=== PATIENT | male | born 2000 | race Caucasian/White ===

== ENCOUNTER 2021-12-24 22:25 | Emergency (ER) | payer BC, SELFPAY ==
[2021-12-24 22:46] VITALS: BP 116/75; PULSE 74; RESP 18; TEMP 36.7; O2SAT 99; BMI 19.1
--- NOTE | 2021-12-25 02:44 | ED.GENADULT ---
HPI - General Adult General Time Seen by Provider: 02:45 Date Seen: 12/25/21 Chief complaint: Urogenital Problems, Male Stated complaint: possible hernia Time Seen by Provider: 12/25/21 02:36 Source: patient Mode of arrival: ambulatory Limitations: no limitations History of Present Illness HPI narrative: 21-year-old male who comes in today with right inguinal swelling. This started about 4 days ago. He is concerned about hernia. It is tender. He denies testicular or scrotal pain or swelling. He denies urinary symptoms or urethral discharge. He denies nausea, vomiting, and is having normal bowel movements. Denies abdominal pain. Related Data Allergies Allergy/AdvReac Type Severity Reaction Status Date / Time No Known Drug Allergies Allergy Verified 12/24/21 22:50 Exam Narrative: Exam Narrative: General: well nourished , NAD Head: Atraumatic and normocephalic ENT: External ears and external nose are normal Eyes: Conjunctiva clear, pupils are equal reactive, external ocular motions are intact Neck: Full spontaneous range of motion of the neck Lungs: No respiratory distress Abd: Soft, nontender, nondistended Musculoskeletal: No tenderness or deformity Neurologic: No gross focal neurologic deficits Skin: Right suprapubic region 4 mm area of central swelling with about 6 cm of surrounding erythema and induration, no pustule and no definite abscess Psych: Mood and affect are appropriate Const: Vital Signs, click to edit/add: Vital Signs - 24 hr 12/24/21 22:46 Temperature 98.0 F Pulse Rate [Left P ulse Oximeter] 74 Respiratory Rate 18 Blood Pressure [Ri ght Upper Arm] 116/75 Pulse Oximetry 99 Oxygen Delivery Me thod Room Air Course Course Hospital Course: Patient seen and examined, prior records reviewed. Patient has a proximally 2 cm area of induration, erythema, and tenderness of the right suprapubic region consistent with folliculitis and cellulitis no drainable abscess or fluid collection at this time. Denies testicular pain or swelling, no hernia defect. Patient was started warm packs, and follow up Vital Signs Vital signs: Initial Vital Signs Temperature 98.0 F 12/24/21 22:46 Temperature Source Temporal Artery Scan 12/24/21 22:46 Pulse Rate 74 10 22:46 Pulse Rhythm 12/24/21 22:46 Respiratory Rate 18 12/24/21 22:46 Blood Pressure 116/75 12/24/21 22:46 Blood Pressure Mean 88 12/24/21 22:46 Blood Pressure Position Sitting 12/24/21 22:46 Pulse Oximetry 99 12/24/21 22:46 Oxygen Delivery Method 12/24/21 22:46 Vital Signs Temperature 98.0 F 12/24/21 22:46 Pulse Rate 74 12/24/21 22:46 Respiratory Rate 18 12/24/21 22:46 Blood Pressure 116/75 12/24/21 22:46 Pulse Oximetry 99 12/24/21 22:46 Oxygen Delivery Method 12/24/21 22:46 Temperature 98.0 F 12/24/21 22:46 Pulse Rate 74 12/24/21 22:46 Respiratory Rate 18 12/24/21 22:46 Blood Pressure 116/75 12/24/21 22:46 Pulse Oximetry 99 12/24/21 22:46 Oxygen Delivery Method 12/24/21 22:46 Discharge Plan Discharge Clinical Impression: Folliculitis Patient Disposition: Home, Self-Care Condition: Stable Instructions: Folliculitis (ED) Additional Instructions: Warm pack 15 minutes at a time every 2 or 3 hours while awake for the next 2 days. Do not squeeze or try to ?pop this if he develops a pimple. Take both antibiotics as prescribed Activity Level: No Restrictions Discharge Diet: Regular Stand Alone Forms: MyHealth Info Instructions
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
--- OUTSIDE RECORDS SUMMARY | 2021-12-25 03:11 | XMS_ITS | Encounter Summary ---
:2000 [facility] Address [address], [place] [address] Care Team Providers Name Role Phone Md ARLENE Addison Primary Care Provider Reason for Visit Procedure/Equipment (Routine) - Incomplete Specialty Diagnoses / Procedures Referred By Contact Refer red To Contact Diagnoses Metatarsal stress fracture, right, initial encounter Delbert Ac MD Procedures XR Foot Rt 3+ Views [address] [facility] [address] [place] [address] Referral ID Status Reason Start Date Expiration Date Visits V isits Requested Authorized [id number] Incomplete 02/23/2016 05/24/2017 1 1 Encounter Details Date Type Department Care Team Description 02/23/2016 Imaging [facility] Delbert Ac MD Right foot pain [address] [facility] [address] [facility] [address] [place] [address] [place] [address] [phone] (Wo rk) Social History Tobacco Use Types Packs/Day Years Used Date Smoking Tobacco: Never Sex Assigned at Date Recorded Not on file documented as of this encounter Plan of Treatment Not on filedocumented as of this encounter Procedures Procedure Name Priority Date/Time Associated Diagnosis Comme nts XR FOOT RT 3+ VIEWS Routine 02/23/2016 10:56 AM Right foot bill n Results for this DIRECTOR OF INSTRUCTION procedure are i n the results section. documented in this encounter Results XR Foot Rt 3+ Views (02/23/2016 10:56 AM DIRECTOR OF INSTRUCTION) Anatomical Region Laterality Modality Lower Extremity, Foot Digital Radiograph y Specimen (Source) Anatomical Location Collection Method / Collectio n Time Received Time / Laterality Volume Narrative 02/23/2016 2:08 PM DIRECTOR OF INSTRUCTION No acute fractures or dislocation. There is evidence of a healing stress fracture over the shaft of the 2nd metat arsal. Delbert Ac MD RAD GD documented in this encounter Visit Diagnoses Diagnosis Right foot pain Pain in limb documented in this encounter Care Teams Campaign Specialist Relationship Specialty Start Date End Date Md Addison MD PCP - General 06/17/10 [place] [address] documented as of this encounter
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
--- OUTSIDE RECORDS SUMMARY | 2021-12-25 03:11 | XMS_ITS | Encounter Summary ---
:2000 [facility] Address [address] [address] Care Team Providers Name Role Phone Md ARLENE Addison Primary Care Provider Encounter Details Date Type Department Care Team Description 04/02/2003 PN Conversion Only [facility] 3850 Fabiola Spicer MD Urgent Care [address] [facility] [address] [facility] [place] [address] [phone] Social History Tobacco Use Types Packs/Day Years Used Date Smoking Tobacco: Never Assessed Sex Assigned at Date Recorded Not on file documented as of this encounter Progress Notes Vale Spicer MD - 04/02/2003 12:01 AM CST Progress Notes signed by Vale Spicer MD at 07/13/03 1333 Author: Vale Spicer MD Service: (none) Author Type: Physician Filed: 07/04/10 1819 Note Time: 04/02/03 0001 Status: Signed Creative Writing English Professor: Vale Spicer MD (Physician) NAME: MARLON SPENCER MR: [id number] ACCT: [id number] VISIT: [id number] DICTATING CLINICIAN: VALE SPICER MD JOB: [id number] CLINIC PROGRESS NOTE DATE OF VISIT: 04/02/2003 SUBJECTIVE: : 2000. See today's URI form. OBJECTIVE: ASSESSMENT: Strep throat. PLAN: Treatment: Pen-Vee K 250 mg b.i.d. for 10 days. TT: CT: [id number] C: 04/03/03 07:55 DOCUMENT: [id number] documented in this encounter Plan of Treatment Not on filedocumented as of this encounter Visit Diagnoses Not on filedocumented in this encounter Care Teams Legal Associate Relationship Specialty Start Date End Date Md Azael, PCP - General 06/17/10 [place] [address] documented as of this encounter
--- OUTSIDE RECORDS SUMMARY | 2021-12-25 03:11 | XMS_ITS | Encounter Summary ---
:2000 Author Organization [facility] Address [address] [address] Care Team Providers Name Role Phone Md ARLENE Addison Primary Care Provider Encounter Details Date Type Department Care Team Description 11/26/2009 PN Conversion Only [employer] EQUIPMENT TENDER [address] [place] [address] Social History Tobacco Use Types Packs/Day Years Used Date Smoking Tobacco: Never Assessed Sex Assigned at Date Recorded Not on file documented as of this encounter Plan of Treatment Not on filedocumented as of this encounter Visit Diagnoses Not on filedocumented in this encounter Care Teams Staff Development Coordinator Rn Relationship Specialty Start Date End Date Md Addison MD PCP - General 06/17/10 [place] [address] documented as of this encounter
--- OUTSIDE RECORDS SUMMARY | 2021-12-25 03:11 | XMS_ITS | Encounter Summary ---
:2000 [facility] Address [address] [address] Care Team Providers Name Role Phone Md ARLENE Addison Primary Care Provider Encounter Details Date Type Department Care Team Description 04/07/2005 Office Visit [address] Soheila Mccoy [address] [place] [address] Social History Tobacco Use Types Packs/Day Years Used Date Smoking Tobacco: Never Assessed Sex Assigned at Date Recorded Not on file documented as of this encounter Last Filed Vital Signs Vital Sign Reading Time Taken Comments Blood Pressure - - Pulse 120 04/07/2005 7:03 PM CLOTH SHADER Temperature 37.3 ??C (99.1 ??F) 04/07/2005 7:03 PM CLOTH SHADER C: 37 .3 C Respiratory Rate 20 04/07/2005 7:03 PM CLOTH SHADER Oxygen Saturation - - Inhaled Oxygen Concentration - - Weight - - Height - - Body Mass Index - - documented in this encounter Progress Notes Soheila Mccoy - 04/07/2005 12:01 AM CST Progress Notes signed by Soheila Mccoy MD at 04/11/05 1834 Author: Soheila Mccoy MD Service: (none) Author Type: (none) Filed: 07/05/10 0944 Note Time: 04/07/05 0001 Status: Signed Banking And Finance Instructor: Soheila Mccoy MD (Physician) NAME: MARLON SPENCER MR: [id number] ACCT: [id number] VISIT: [id number] DICTATING CLINICIAN: SOHEILA MCCOY MD JOB: [id number] CLINIC PROGRESS NOTE DATE OF VISIT: 04/07/2005 SUBJECTIVE: Chief Complaint: Sore throat. HPI: This 4-year-old male has had approximately six hours of mild sore throat. He notes it does hurt to swallow. He notes mild myalgias. There is no fever. No chills. Patient is eating normally. He did not have any sore throat before he went to school today. He denies cough, rhinorrhea. He has no known strep exposure. PAST MEDICAL HISTORY: Otherwise, negative. MEDICATIONS: None. ADR/ALLERGIES: NONE. REVIEW OF SYSTEMS: ENT positive for sore throat. Constitutional positive for myalgias. Respiratory, skin, neurologic, psychiatric, GI, are negative. OBJECTIVE: VS: T: 99.2. P: 120. R: 20. CONSTITUTIONAL APPEARANCE: The patient is in no apparent acute distress. SKIN: Warm and dry. NEUROLOGICAL: PERRL. EOMs within normal limits. PSYCHIATRIC: Patient is active, alert, conversing appropriately. MUSCULOSKELETAL: Gait within normal limits. EYES: Eyelids, conjunctivae, pupils, irises are normal. ENT: Exterior ears, nose, TMs, canals are normal. Oropharynx shows slight redness, no exudate. NECK: Supple. Respiratory pattern normal. LUNGS: Clear. CLINICAL TREATMENT: Rapid strep screen is negative. Patient instructions provided. ASSESSMENT: Acute viral pharyngitis. PLAN: The patient is to be at rest, drink lots of liquids. He is to take Motrin and/or Tylenol for fever discomfort. He is to be reexamined in three to five days. RGD:[id number] C: 04/08/05 17:47 DOCUMENT: [id number] H SHADER documented in this encounter Plan of Treatment Not on filedocumented as of this encounter Visit Diagnoses Not on filedocumented in this encounter Care Teams Millwright Instructor Relationship Specialty Start Date End Date Md Addison MD PCP - General 06/17/10 [place] [address] documented as of this encounter
--- OUTSIDE RECORDS SUMMARY | 2021-12-25 03:11 | XMS_ITS | Encounter Summary ---
:2000 Author Organization [facility] Address [address] [address] Care Team Providers Name Role Phone Md ARLENE Addison Primary Care Provider Encounter Details Date Type Department Care Team Description 12/26/2009 Office Visit [facility] Jeff Lipscomb MD [address] [place] [address] [place] [address] [phone] (Wo rk) Social History Tobacco Use Types Packs/Day Years Used Date Smoking Tobacco: Never Assessed Sex Assigned at Date Recorded Not on file documented as of this encounter Progress Notes Berna Salgado OA - 12/26/2009 12:01 AM CDT Progress Notes signed by Berna Salgado at 12/26/09 1147 Author: Berna Salgado Service: (none) Author Type: ORTHOPAEDIC PHARMACY TECHNICIAN INFUSION Filed: 12/26/09 0000 Note Time: 12/26/09 0001 Status: Signed Psychiatric Nursing Assistant: Berna Salgado (ORTHOPAEDIC PHARMACY TECHNICIAN INFUSION) Patient presented to the castroom with his Mother. Per Dr. Jj's dictation long arm cast is removed from right arm. Skin is dry and intact, no reddness noted. New Short arm cast in neutral position applied to right arm, Patient to follow up as scheduled, sooner with any concerns. Radha Cui documented in this encounter Plan of Treatment Not on filedocumented as of this encounter Visit Diagnoses Not on filedocumented in this encounter Care Teams Land Acquisition Manager Relationship Specialty Start Date End Date Md Addison MD PCP - General 06/17/10 [place] [address] documented as of this encounter
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
--- OUTSIDE RECORDS SUMMARY | 2021-12-25 03:11 | XMS_ITS | Encounter Summary ---
:2000 Author Organization [facility] Address [address], [place] [address] Care Team Providers Name Role Phone Md ARLENE Addison Primary Care Provider Encounter Details Date Type Department Care Team Description 04/02/2003 PN Conversion Only RABBLE FURNACE TENDER [address] [facility] Vale Grant MD [facility] [facility] [address] [place] [address] [place] [address] Social History Tobacco Use Types Packs/Day Years Used Date Smoking Tobacco: Never Assessed Sex Assigned at Date Recorded Not on file documented as of this encounter Plan of Treatment Not on filedocumented as of this encounter Procedures Procedure Name Priority Date/Time Associated Diagnosis Comme nts STREP GROUP A Routine 04/02/2003 10:06 AM Results for this ANTIGEN TEST BLUEPRINT ENGINEER procedure are i n the results section. documented in this encounter Results Strep Group A Antigen Test (04/02/2003 10:06 AM BLUEPRINT ENGINEER) Analysis Performed At [facility] Time Signature Strep Group A Positive Negative HP CONVERSION Antigen Test Specimen (Source) Anatomical Collection Method Collection Time Re ceived Time Location / / Volume Laterality 04/02/2003 10:06 AM BLUEPRINT ENGINEER Vale Grant MD LAB_1 Performing Organization Address City/State/ZIP Code Phon e Number HP CONVERSION documented in this encounter Visit Diagnoses Not on filedocumented in this encounter Care Teams Cull Grader Relationship Specialty Start Date End Date Md Addison MD PCP - General 06/17/10 [place] [address] documented as of this encounter
--- OUTSIDE RECORDS SUMMARY | 2021-12-25 03:11 | XMS_ITS | Encounter Summary ---
:2000 Author Organization [facility] Address [address], [place] [address] Care Team Providers Name Role Phone Md ARLENE Addison Primary Care Provider Encounter Details Date Type Department Care Team Description 07/04/2010 Office Visit [facility] Hand Therapy Roseann Solomon, OTR/L [address] [place], [place] [address] [address] [place] [address] [phone] (Wo rk) Social History Tobacco Use Types Packs/Day Years Used Date Smoking Tobacco: Never Assessed Sex Assigned at Date Recorded Not on file documented as of this encounter Progress Notes Roseann Solomon, OTR/L - 07/04/2010 12:[address] [facility] Hand Therapy Evaluation Referring Provider: Corie Jj MD. Diagnosis: Right Distal Radius Fracture. Orders: Eval and treat. Exercise. Date of onset: 05/17/2010 Cause: fell Hand Dominance: Left Past Medical History: See Electronic Medical Record for past medical history, medications, and drug allergies. Occupation: 5th grader Leisure / Sport Activities: leggos, biking, piano Functional Limitations: Patient will need to wear a splint that will limit the functional use of their hand during the healing phase of recovery. SUBJECTIVE: Patient to wear splint x4 weeks for activities. OBJECTIVE: Edema: None. Pain: 0/10 at rest; 1/10 with palpation to distal radius ROM: Wrist AROM Wrist extension/flexion: 52/37 Ulnar/Radial deviation: 17/20 Supination/Pronation: 55/57 Strength: Strength measurements were deferred at this time. Sensation: Per patient report sensation is intact. TODAY'S TREATMENT INTERVENTION: Patient was instructed in, performed, and provided with written handouts for wrist AROM and AAROM. Patient instructed in finger ROM as well. ASSESSMENT: Functional limitations are due to: Decreased range of motion. Decreased strength. Fracture healing. Rehabilitation prognosis is excellent to achieve stated goals. Mood, orientation, and behavior were appropriate. Patient was alert and oriented. No apparent barriers to learning. Discharge is planned when functional outcomes are achieved, or adequate progress is made such that the patient is able to self-manage with the home program. Functional Outcomes: Patient will resume use of affected extremity in 6-8 weeks per referring provider. PLAN: Short term goals achieved. Patient to gradually resume all actives with right hand. If motion and use are not improving in approximately 2 weeks instructed patient's mother to call for further treatment. Occupational Therapy Evaluation (CPT 95857) Total evaluation/treatment time: 20 minutes Therapist Signature: Roseann Solomon MA, OTR/L #[id number] *SH~TRIA~HANDACUTE ~ documented in this encounter Plan of Treatment Not on filedocumented as of this encounter Visit Diagnoses Not on filedocumented in this encounter Care Teams Production Posting Clerk Relationship Specialty Start Date End Date Md Addison MD PCP - General 06/17/10 [place] [address] documented as of this encounter
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
--- OUTSIDE RECORDS SUMMARY | 2021-12-25 03:11 | XMS_ITS | Encounter Summary ---
:2000 Author Organization [facility] Address [address] [place] [address] Care Team Providers Name Role Phone Md ARLENE Addison Primary Care Provider Reason for Referral Procedure/Equipment (Routine) - Incomplete Specialty Diagnoses / Procedures Referred By Contact Refer red To Contact Diagnoses Metatarsal stress fracture, right, initial encounter Delbert Ac MD Procedures XR Foot Rt 3+ Views [address] [facility] [place], [place] [address] Referral ID Status Reason Start Date Expiration Date Visits V isits Requested Authorized [id number] Incomplete 02/23/2016 05/24/2017 1 1 ER MACHINE Reason for Visit Reason Comments Foot Pain or Injury right foot, fall, DOI 6 Encounter Details Date Type Department Care Team Description 02/23/2016 Office Visit [facility] Delbert Ac MD 2nd metatarsal stress Urgent Care [address] [facility] fracture with [address] [place], [place] incomplete healing, [place], [place] [address] right, initial [phone] (Wo rk) encounter (Primary Dx) Social History Tobacco Use Types Packs/Day Years Used Date Smoking Tobacco: Never Sex Assigned at Date Recorded Not on file documented as of this encounter Last Filed Vital Signs Vital Sign Reading Time Taken Comments Blood Pressure - - Pulse - - Temperature 36.3 ??C (97.4 ??F) 02/23/2016 10:17 AM IRONER MACHINE Respiratory Rate - - Oxygen Saturation - - Inhaled Oxygen Concentration - - Weight 67.6 kg (149 lb) 02/23/2016 10:17 AM IRONER MACHINE Height - - Body Mass Index - - documented in this encounter Patient Instructions Patient InstructionsLidia Trejo LPN - 02/23/2016 10:[address] Delbert Ac MD Sports & Orthopaedic Medicine [facility] Medication Requests: Prescriptions are not filled on Weekends or on Weekdays after 3:00PM For all medication refills: Request a refill using [facility] or contact your Pharmacy Acute [facility] Nurse Line: [phone] Please contact Acute Injury Clinic Nurse line for all medical requests and questions Olive Grader: Becky Ramirez Please call Becky for all administrative questions at [phone] MRI Scheduling: To schedule an MRI at [facility] please call [phone] Assessment: 1. Incompletely healed 2nd metatarsal stress fracture Plan: Educated the patient and father regarding his condition and management. After a discussion recommended continuing to wear his boot for 2 more weeks. After 2 weeks if he is still having pain then he cancall to schedule an MRI of the right foot to evaluate for a stress fracture. I provided him with a note for swimming stating no kicking, starts, or flip turns. The patient and father verbalized understanding. All questions were answered. Follow-up as needed or in 2 weeks if no improvement. ER MACHINE documented in this encounter Progress Notes Delbert Ac MD - 02/23/2016 10:18 AM CST [facility] 02/23/2016 Chief Complaint: Right Foot Pain History of Present Illness: Marlon Spencer is a 15 y.o. male who presents with his father Moses for evaluation of right foot painthat started on 01/16/2016 after he stumbled while running on a treadmill. He was initially evaluatedafter his injury, where he got x-rays taken, diagnosed with a stress fracture and was provided with a CAM boot. Today reports that the pain has not been getting better since resting and wearing a boot for 1 month. Marlon does state that he has no pain while in the boot. He has not been able to get back to competitive swimming yet due to his pain. The pain becomes worse with prolonged walking. The patient has tried wearing a boot and resting which has provided minor symptomatic relief. Review of Systems: The patient denies fever, rash, numbness, or tingling. Past Medical History: The patient denies diabetes, stomach problems, or joint problems. Past Surgical History: Noncontributory. Family History: Noncontributory. Social History: Here today with his father. 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 Patient is a non-smoker. Enjoys swimming and lifting weights for exercise. Physical Exam: Temp(Src) 36.3 ??C (97.4 ??F) (Tympanic) Wt 67.586 kg (149 lb) General: He is alert, cooperative, in no acute distress. Mood and affect are appropriate. Cardiovascular: He has a palpable tibialis posterior pulse. Neuro: Distal sensation is intact to light touch. Right Foot/Ankle: Tender over the head and neck of the 2nd and 3rd metatarsals. No effusion present.Full dorsiflexion and plantarflexion. Imaging: Radiographs of the right foot - 3 views (02/23/2016): No acute fractures or dislocation. There is evidence of a healing stress fracture over the shaft of the 2nd metatarsal. I ordered and independently reviewed and interpreted the imaging studies above; the results were discussed with the patient and father. Assessment: 1. Incompletely healed 2nd metatarsal stress fracture Plan: Educated the patient and father regarding his condition and management. After a discussion recommended continuing to wear his boot for 2 more weeks. After 2 weeks if he is still having pain then he cancall to schedule an MRI of the right foot to evaluate for a persistent stress fracture. I provided him with a note for swimming stating no kicking, starts, or flip turns. The patient and father verbalized understanding. All questions were answered. Follow-up as needed or in 2 weeks if no improvement. Scribe Disclosure: I, Jose Farley, am serving as a scribe to document services personally performed by Delbert Ac MD at this visit, based upon the provider's statements to me. All documentation has been reviewed by the aforementioned provider prior to being entered into the official medical record. Entered on 02/23/2016 at 10:23 AM. I, Delbert Ac MD, attest that the above named individual is acting in scribe capacity, has observed my performance of the services performed at this visit and has documented them in accordance with my direction. Entered on 02/23/2016 at 10:23 AM. Delbert Ac MD ER MACHINE documented in this encounter Plan of Treatment Not on filedocumented as of this encounter Results XR Foot Rt 3+ Views (02/23/2016 10:56 AM IRONER MACHINE) Anatomical Region Laterality Modality Lower Extremity, Foot Digital Radiograph y Specimen (Source) Anatomical Location Collection Method / Collectio n Time Received Time / Laterality Volume Narrative 02/23/2016 2:08 PM IRONER MACHINE No acute fractures or dislocation. There is evidence of a healing stress fracture over the shaft of the 2nd metat arsal. Delbert Ac MD RAD GD documented in this encounter Visit Diagnoses Diagnosis 2nd metatarsal stress fracture with inco mplete healing, right, initial encounter - Primary Right foot pain Pain in limb documented in this encounter Care Teams End Maker Relationship Specialty Start Date End Date Md Addison MD PCP - General 06/17/10 [place] [address] documented as of this encounter
--- OUTSIDE RECORDS SUMMARY | 2021-12-25 03:11 | XMS_ITS | Encounter Summary ---
:2000 Author Organization [facility] Address [address], [place] [address] Care Team Providers Name Role Phone Md ARLENE Addison Primary Care Provider Encounter Details Date Type Department Care Team Description 04/07/2005 PN Conversion Only [facility] [address] [place] [address] Social History Tobacco Use Types Packs/Day Years Used Date Smoking Tobacco: Never Assessed Sex Assigned at Date Recorded Not on file documented as of this encounter Plan of Treatment Not on filedocumented as of this encounter Procedures Procedure Name Priority Date/Time Associated Diagnosis Comme nts STREP GROUP A Routine 04/07/2005 8:24 PM Results for this ANTIGEN TEST SOAP GRINDER procedure are i n the results section. BETA STREP FOLLOWUP Routine 04/07/2005 8:24 PM Re sults for this SOAP GRINDER procedure are i n the results section. documented in this encounter Results Strep Group A Antigen Test (04/07/2005 8:24 PM SOAP GRINDER) Analysis Performed At Patho logist Time Signature Strep Group A Negative Negative HP CONVERSION Antigen Test Comment: Culture to follow. Specimen (Source) Anatomical Collection Method Collection Time Re ceived Time Location / / Volume Laterality 04/07/2005 8:24 PM SOAP GRINDER Randall Dewitt LAB_1 Performing Organization Address City/State/ZIP Code Phon e Number HP CONVERSION (ABNORMAL) Beta Strep Followup (04/07/2005 8:24 PM SOAP GRINDER) Analysis Performed At Patho logist Time Signature Strep Screen SEE TEXT HP CONVERSION (A) Comment: Patient: MARLON SPENCER Rapid Strep Follow up Culture @ ? Collected: ?2023 Source: Throat ?Processed: ?2023 Final Report ------ ?[id number] ??1341 Beta Strep Group A Present. ICSI Pharyngitis guideline recommends Penicillin V potassium (Pen VK) in nonal lergic patients. If < 50 lbs, 250 mg PenVK BID for 10 day s. >=50 lbs, 500 mg PenVK BID for 10 days. @ = Rapid F/U Cult Performed at ??[address] [place], [place] ?[address] Specimen (Source) Anatomical Collection Method Collection Time Re ceived Time Location / / Volume Laterality 04/07/2005 8:24 PM SOAP GRINDER Randall Dewitt [facility]_1 Performing Organization Address City/State/ZIP Code Phon e Number HP CONVERSION documented in this encounter Visit Diagnoses Not on filedocumented in this encounter Care Teams Technical Maintenance Specialist Relationship Specialty Start Date End Date Md Azael, PCP - General 06/17/10 [place] [address] documented as of this encounter
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
--- OUTSIDE RECORDS SUMMARY | 2021-12-25 03:11 | XMS_ITS | Encounter Summary ---
:2000 Author Organization [facility] Address [address] [address] Care Team Providers Name Role Phone Md ARLENE Addison Primary Care Provider Encounter Details Date Type Department Care Team Description 04/03/2003 PN Conversion Only [facility] [address] [place] [address] Social History Tobacco Use Types Packs/Day Years Used Date Smoking Tobacco: Never Assessed Sex Assigned at Date Recorded Not on file documented as of this encounter Plan of Treatment Not on filedocumented as of this encounter Visit Diagnoses Not on filedocumented in this encounter Care Teams Health Services Rn Relationship Specialty Start Date End Date Md Addison MD PCP - General 06/17/10 [place] [address] documented as of this encounter
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
--- OUTSIDE RECORDS SUMMARY | 2021-12-25 03:11 | XMS_ITS | Encounter Summary ---
:2000 [facility] Organization [facility] Address [address] [address] Care Team Providers Name Role Phone Md ARELNE Addison Primary Care Provider Reason for Visit Procedure/Equipment (Routine) - Incomplete Specialty Diagnoses / Procedures Referred By Contact Refer red To Contact Diagnoses Injury of right shoulder and upper arm, initial encounter Torres Mark DO Procedures XR Forearm Rt 2 Views XR Elbow Rt 2 Views [address] [facility] [place] [place] [address] Referral ID Status Reason Start Date Expiration Date Visits V isits Requested Authorized [id number] Incomplete 10/15/2020 01/14/2022 1 1 Encounter Details Date Type Department Care Team Description 10/15/2020 Ancillary Procedure [facility] Torres Mark DO [address] [place] [address] HAYLIE [address]on [address] [place], [place] [phone] (Wo rk) Social History Tobacco Use Types [...] definite fracture or other abnormality is identified. Torres HENLEY GD documented in this encounter Visit Diagnoses Not on filedocumented in this encounter Care Teams Refrigerator Repair Technician Relationship Specialty Start Date End Date Md Azael, PCP - General 06/17/10 [place] [address] documented as of this encounter
--- OUTSIDE RECORDS SUMMARY | 2021-12-25 03:11 | XMS_ITS | Encounter Summary ---
:2000 Author Organization [facility] Address [address] [address] Care Team Providers Name Role Phone Md ARLENE Addison Primary Care Provider Encounter Details Date Type Department Care Team Description 05/23/2010 Office Visit [facility] Jenna Jj MD [address] [place] [address] [place] [address] [phone] (Wo rk) Social History Tobacco Use Types Packs/Day Years Used Date Smoking Tobacco: Never Assessed Sex Assigned at Date Recorded Not on file documented as of this encounter Progress Notes Jenna Jj MD - 05/23/2010 12:01 AM CST NAME: MARLON SPENCER VISIT: [id number] DICTATING CLINICIAN: JENNA JJ MD JOB: [id number] LOC: 3711 CLINIC PROGRESS NOTE DATE OF VISIT: 05/23/2010 CHIEF COMPLAINT: Right distal radial fracture (re-fracture). HISTORY OF PRESENT ILLNESS: The patient is an 9-year-old left-hand dominant boy who I initially saw on 11/28/2009 for a distal radial and ulnar fracture. This was initially treated with a long-arm cast and then transitioned to a short-arm. The fracture did completely heal and the patient was pain free. Unfortunately, the patient tripped and fell on 05/17/2010 onto an extended right arm and sustained a re-fracture of his right distal radius. Was evaluated at [facility] and reportedly had a closed reduction performed under anesthesia; however, his mother was not aware of details of the fracture and is frustrated with lack of communication. Was placed in a long-arm cast, and he presents today for further evaluation. Does have pre-reduction films but not post-reduction films available. Has not had any significant pain while casted, has been using Advil intermittently. No other fractures reported since last visit other than current injury. MEDICATIONS: No chronic medications. ADR/ALLERGIES: NO KNOWN DRUG ALLERGIES. OBJECTIVE: GENERAL: Alert, well-developed, well-nourished, young boy in no apparent distress. MUSCULOSKELETAL: Right upper extremity: The cast is removed, and the patient is notably tender to palpation over the more-distal aspect of the radius approximately 2-5 cm from the distal end of the radius. Nontender over entire length of ulna. Range of motion with flexion, extension, pronation, and supination not tested today. Nontender to palpation over metacarpals or digits of right hand. Nontender at elbow nor at shoulder. There is some prominence over the dorsum of the distal aspect of the forearm at fracture site. SKIN: No ecchymosis or erythema. No break in skin. NEUROVASCULAR: Median, radial and ulnar nerves intact. IMAGING: Outside images from [facility] dated 05/17/2010 demonstrate a distal radial fracture, diaphyseal, with 3 degrees of angulation, apex dorsal. There are no post-reduction films available. Repeat films of the right wrist obtained today demonstrate less than 1 cm of shortening at distal radial fracture site with both radial and ventral displacement of fracture fragment. Films and case reviewed with hand surgeon. ASSESSMENT: Right distal radial fracture with some volar and radial displacement of fracture fragment which ultimately is deemed acceptable. Surgical intervention is not indicated at this time. PLAN: 1. The patient is placed in a long-arm cast. 2. Follow up in one week for repeat x-rays of the right wrist, 3 views in cast. 3. Will expect to immobilize with a long-arm cast for at least four weeks and possibly a short-arm cast for two weeks but will re-evaluate as time goes on. 4. Utjq-lrr-oyccirl pain medications as needed. Total time 25 minutes, counseling time 15 minutes. DOCUMENT: [id number] documented in this encounter Plan of Treatment Not on filedocumented as of this encounter Visit Diagnoses Not on filedocumented in this encounter Care Teams Handbook Writer Relationship Specialty Start Date End Date Md Addison MD PCP - General 06/17/10 [place] [address] documented as of this encounter
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
--- OUTSIDE RECORDS SUMMARY | 2021-12-25 03:11 | XMS_ITS | Encounter Summary ---
:2000 Author Organization [facility] Address [address] [address] Care Team Providers Name Role Phone Md ARLENE Addison Primary Care Provider Encounter Details Date Type Department Care Team Description 05/30/2010 Office Visit [facility] TER Jenna Jj MD [address] [place] [address] [place] [address] [phone] (Wo rk) Social History Tobacco Use Types Packs/Day Years Used Date Smoking Tobacco: Never Assessed Sex Assigned at Date Recorded Not on file documented as of this encounter Progress Notes Jenna Jj MD - 05/30/2010 12:01 AM CDT NAME: MARLON SPENCER VISIT: [id number] DICTATING CLINICIAN: JENNA JJ MD JOB: [id number] LOC: 3711 CLINIC PROGRESS NOTE DATE OF VISIT: 05/30/2010 CHIEF COMPLAINT: Right distal radial fracture - follow up. HISTORY OF PRESENT ILLNESS: Patient is an 9-year-old left hand dominant boy who has been treated in the past for a right distal radial and ulnar fracture in November 2009. This did heal completely, however on 05/17/2010 he tripped and landed on his extended right arm and sustained a refracture of his right distal radius. The fracture was displaced and closed reduction was performed under anesthesia. At most recent visit on 05/23/2010 x-rays were obtained here with evidence of some volar and radial displacement fracture fragment, however positioning was deemed acceptable after review with hand surgeon. He has been in a long arm cast and is here today simply to confirm position has been maintained. MEDICATIONS: No chronic medications. ADR/ALLERGIES: No known drug allergies. OBJECTIVE: GENERAL: Alert, well-developed, well-nourished young boy in no apparent distress. MUSCULOSKELETAL: Right upper extremity: Arm is in a long cast with adequate profusion and sensation. Moves all digits. Capillary refill less than 2 seconds. IMAGING: Repeat films of right wrist, 3 views, again shows distal radial fracture with some volar and radial displacement. However, position is unchanged when compared to films from 05/23/2010. Displacement is less than 0.5 cm in both directions. ASSESSMENT: Right distal radial fracture with minimal displacement. Position has been maintained with current long-arm cast. PLAN: 1. Follow up in one week for repeat x-rays of right wrist, 3 views out of cast. 2. Return to long arm cast; expect this immobilization for at least 4 to 6 weeks. 3. Modify activities to avoid fall risks. D: [id number] T: [id number] DOCUMENT: [id number].[facility] documented in this encounter Plan of Treatment Not on filedocumented as of this encounter Procedures Procedure Name Priority Date/Time Associated Diagnosis Comme nts XR WRIST RT 3+ Routine 05/30/2010 8:36 AM Results for this VIEWS CDT procedure are i n the results section. documented in this encounter Results XR Wrist Rt 3+ Views (05/30/2010 8:36 AM CDT) Anatomical Region Laterality Modality Upper Extremity, Wrist Other Specimen (Source) Anatomical Location Collection Method / Collectio n Time Received Time / Laterality Volume Narrative 05/30/2010 8:36 AM CDT Comparison to exam 05/23/2010 shows a cast overlying the distal right forearm and wrist on the present study. ??The fracture of the distal right radius shaft is again noted with p ersistent ventral displacement of the distal fragment rela tive to the proximal fragment. ??There is slight radial displ acement and angulation of the distal fragment relative to the proximal fragment. ??There is no other significant change identified. Dictating MD BAUMEL, RADHA S RADIOLOGIST Procedure Note Radha Trejo MD - 08/31/2015Form atting of this note might be different from the original. Comparison to exam 05/23/[address] overlying the distal right forearm and wrist on the present study. The fracture of the distal right radius shaft is again noted with p ersistent ventral displacement of the distal fragment rela tive to the proximal fragment. There is slight radial displac ement and angulation of the distal fragment relative to the proximal fragment. There is no other significant change identified. Dictating RADHA UGALDE RADIOLOGIST Jenna Jj MD RAD GD documented in this encounter Visit Diagnoses Not on filedocumented in this encounter Care Teams Supervisor Testing Relationship Specialty Start Date End Date Md Addison MD PCP - General 06/17/10 [place] [address] documented as of this encounter
--- OUTSIDE RECORDS SUMMARY | 2021-12-25 03:11 | XMS_ITS | Encounter Summary ---
:2000 Author Organization [facility] Address [address], [place] [address] Care Team Providers Name Role Phone Md ARLENE Addison Primary Care Provider Reason for Visit Reason Comments Follow-up R foot injury, possible rein jury at school dance 1 week prior. Would like to return to running Encounter Details Date Type Department Care Team Description 04/30/2016 Office Visit [facility] Delbert Ac MD Metat[facility] stress Urgent Care [address] fracture, right, with [address] [place], [place] routine healing, [place], [place] [phone] subsequent encounter [phone] (Wo rk) (Primary Dx) Social History Tobacco Use Types Packs/Day Years Used Date Smoking Tobacco: Never Sex Assigned at Date Recorded Not on file documented as of this encounter Last Filed Vital Signs Vital Sign Reading Time Taken Comments Blood Pressure - - Pulse - - Temperature 36.8 ??C (98.3 ??F) 04/30/2016 7:28 PM ELECTRICAL PROSPECTING OBSERVER Respiratory Rate - - Oxygen Saturation - - Inhaled Oxygen Concentration - - Weight - - Height - - Body Mass Index - - documented in this encounter Patient Instructions Patient InstructionsSarah BethmitchellLidia Beatrice - 04/30/2016 7:[address] Delbert Ac MD Sports & Orthopaedic Medicine [facility] Medication Requests: Prescriptions are not filled on Weekends or on Weekdays after 3:00PM For all medication refills: Request a refill using MyChart or contact your Pharmacy [facility] Nurse Line: [phone] Please contact [facility] Nurse line for all medical requests and questions Computer Information Systems Professor: Becky Ramirez Please call Becky for all administrative questions at [phone] MRI Scheduling: To schedule an MRI at [facility] please call [phone] Schedule follow up with Dr. Ac as needed TRICAL PROSPECTING OBSERVER documented in this encounter Progress Notes Delbert Ac MD - 04/30/2016 7:37 PM CST [facility] 04/30/2016 Chief Complaint: Right Second Metatarsal Stress Fracture. History of Present Illness: Marlon Spencer is a 15 y.o. male who presents for follow-up of a right second metatarsal stress fracture. Patient reports he is doing better. He did experience some limping one week ago after dancing. He does endorse that he trusts the right foot less than the left. He and his mother voice no further co ncerns. Review of Systems: Denies fever, rash, numbness or tingling. Physical Exam: Temp(Src) 36.8 ??C (98.3 ??F) (Tympanic) General: He is alert, cooperative, in no acute distress. Mood and affect are appropriate. Neuro: Distal sensation is intact to light touch. Right Foot/Ankle: No significant tenderness noted over the second metatarsal. No effusion. Ambulateswith a normal gait. Can toe walk without significant difficulty. Assessment: Right Second Metatarsal Stress Fracture clinically well healed. Plan: Given history and physical exam, I do not believe imaging studies are indicated today. He can continue to wear his orthopedic boot for another week if he has continued comfort with this. He can begin sporting activities such as running in a few weeks. Patient and mother are agreeable to this. All questions were answered. Follow up as needed Scribe Disclosure: Cristian Wan, am serving as a scribe to document services personally performed by Delbert Ac MD at this visit, based upon the provider's statements to me. All documentation has been reviewed bythe aforementioned provider prior to being entered into the official medical record. Entered on 04/30/2016 at 7:37 PM. I, Delbert Ac MD, attest that the above named individual is acting in scribe capacity, has observed my performance of the services performed at this visit and has documented them in accordance with my direction. Entered on 04/30/2016 at 7:37 PM. Delbert Ac MD TRICAL PROSPECTING OBSERVER documented in this encounter Plan of Treatment Not on filedocumented as of this encounter Visit Diagnoses Diagnosis Metatarsal stress fracture, right, with routine healing, subsequent encounter - Primary documented in this encounter Care Teams Appetizer Packer Relationship Specialty Start Date End Date Md Addison MD PCP - General 06/17/10 [place] [address] documented as of this encounter
--- OUTSIDE RECORDS SUMMARY | 2021-12-25 03:11 | XMS_ITS | Encounter Summary ---
:2000 Author Organization [facility] Address [address], [place] [address] Care Team Providers Name Role Phone Md ARLENE Addison Primary Care Provider Encounter Details Date Type Department Care Team Description 06/06/2010 Office Visit [facility] Jenna Jj MD [address] [place] [address] [place] [address] [phone] (Wo rk) Social History Tobacco Use Types Packs/Day Years Used Date Smoking Tobacco: Never Assessed Sex Assigned at Date Recorded Not on file documented as of this encounter Progress Notes Jenna Jj MD - 06/06/2010 12:01 AM CDT NAME: MARLON SPENCER VISIT: [id number] DICTATING CLINICIAN: JENNA JJ MD JOB: [id number] LOC: 3711 CLINIC PROGRESS NOTE DATE OF VISIT: 06/06/2010 : 2000 CHIEF COMPLAINT: Right distal radial fracture followup. HISTORY OF PRESENT ILLNESS: The patient is an 9-year-old left hand dominant boy who sustained a right distal radial fracture on 05/17/2010. Please see my initial note from 05/23/2010 for further details. He was initially seen at [facility] with a closed reduction under anesthesia. The patient has been in a long arm cast for the past 2-1/2 weeks for a fracture which has mild angulation and both radial and anterior displacement. Has tolerated casting well. No new injury. Has not been requiring pain medications. No new numbness or tingling. Today rates pain 1/10. MEDICATIONS: No chronic medications. ADR/ALLERGIES: NO KNOWN DRUG ALLERGIES. OBJECTIVE: GENERAL: Alert, well-developed, well-nourished young boy. No apparent distress. MUSCULOSKELETAL: Right Upper Extremity: soft tissue swelling about the distal radius. Has decreased significantly. Able to reproduce some tenderness to palpation at distal radius/fracture site. Wrist extension to 30 degrees. Flexion to 50 (patient is reluctant to move any further but would likely be able to do so). No pain with ulnar or radial deviation. Nontender over entire length of ulnar. Nontender over carpal bones or remainder of upper extremity. SKIN: No ecchymosis or erythema. NEUROVASCULAR: Median, radial, ulnar nerve intact. Radial pulse intact. IMAGING: X-RAYS: Three views of right wrist demonstrates fracture at the distal shaft of radius with both anterior and radial displacement which is unchanged compared to previous films. There is evidence of interval healing with bridging callus. Position unchanged. No new injuries identified. ASSESSMENT: Right distal radial fracture shaft with some displacement radially and volarly, with early evidence of healing on examination and x-ray. PLAN: 1. Patient placed back in a long arm cast for the next 2 weeks. 2. Followup in 2 weeks time for reevaluation out of cast. If patient has very minimal pain, will defer x-rays and convert to a short arm cast with lakia-rays and additional 2 weeks out. 3. If patient has still notable soreness at fracture site, we will repeat x-rays of right wrist, 3 views. 4. In the meantime, modification of activities and wets-nmp-gnsrbje pain medications as needed. DOCUMENT: [id number] documented in this encounter Plan of Treatment Not on filedocumented as of this encounter Procedures Procedure Name Priority Date/Time Associated Diagnosis Comme nts XR WRIST RT 3+ Routine 06/06/2010 11:10 AM Result s for this VIEWS CDT procedure are i n the results section. documented in this encounter Results XR Wrist Rt 3+ Views (06/06/2010 11:10 AM CDT) Anatomical Region Laterality Modality Upper Extremity, Wrist Other Specimen (Source) Anatomical Location Collection Method / Collectio n Time Received Time / Laterality Volume Impressions 06/06/2010 11:10 AM CDT : Interval cast removal with subacute healing distal radial shaft fracture with satisfactory and sta ble position alignment. Dictating SANKET SWANSON RADIOLOGIST Narrative 06/06/2010 11:10 AM CDT Compared with 05/30/2010, the cast been removed. ??Subacute healing distal shaft fracture of the radius agai n visualized with some mild radial displacement and angulation which appears unchanged. ??There is also anterior displacement of the major distal fracture fragment. There is some developing bridging callus deposition noted at this time. ??No other changes. Procedure Note Sanket Moody MD - 08/31/2015Formatti ng of this note might be different from the original. Compared with 05/30/2010, the cast been removed. Subacute healing distal shaft fracture of the radius agai n visualized with some mild radial displacement and angulation which appears unchanged. There is also anterior displacement of the major distal fracture fragment. There is some developing bridging callus deposition noted at this time. No other changes. IMPRESSION : Interval cast removal with subacute he aling distal radial shaft fracture with satisfactory and sta ble position alignment. Dictating SANKET SWANSON RADIOLOGIST Jenna Jj MD RAD GD documented in this encounter Visit Diagnoses Not on filedocumented in this encounter Care Teams Installer Helper Relationship Specialty Start Date End Date Md Addison MD PCP - General 06/17/10 [place] [address] documented as of this encounter
--- OUTSIDE RECORDS SUMMARY | 2021-12-25 03:11 | XMS_ITS | Encounter Summary ---
:2000 Author Organization [facility] Address [address] [address] Care Team Providers Name Role Phone Md ARLENE Addison Primary Care Provider Encounter Details Date Type Department Care Team Description 12/26/2001 PN Conversion Only [facility] [address] Chris Escobedo MD Urgent Care [address] [facility] [address] [facility] [place] [address] [id number] [phone] Social History Tobacco Use Types Packs/Day Years Used Date Smoking Tobacco: Never Assessed Sex Assigned at Date Recorded Not on file documented as of this encounter Progress Notes Gautam Escobedo MD - 12/26/2001 12:01 AM CDT Progress Notes signed by at 05/07/02 0001 Author: Gautam Escobedo MD Service: (none) Author Type: Physician Filed: 07/04/10 0952 Note Time: 12/26/01 0001 Status: Signed Negative Developer: Gautam Escobedo MD (Physician) IMPRESSION: URI, possibly complicated by right otitis media. SUBJECTIVE: Chief Complaint: Pulling on right ear. HISTORY OF PRESENT ILLNESS: This is a iaeex-npok-grg boy brought in by his mother today. The child, reportedly, has had URI symptoms characterized by runny nose and dry cough for the past week or so complicated by slightly junkier cough in the last three days and some pulling on the right ear. Mother was concerned that the child may be developing a concomitant otitis media. PAST MEDICAL HISTORY: None. CURRENT MEDICATIONS: Robitussin Cough and Cold. ADR/ALLERGIES: NONE. SOCIAL HISTORY: No second hand smoke in the household. Immunizations are all up-to-date. SURGICAL HISTORY; None. FAMILY HISTORY: None. REVIEW OF SYSTEMS: As per the HPI. The child has been eating and drinking more or less as per his usual. Has been no exanthems reported. The remainder of his complete review of systems, otherwise, negative. OBJECTIVE: VS: T: 97.6. P: 112. R: 24. WT: 36 lb. He is a playful uqhsd-yiya-xed body. HEENT: Revealed slightly yellowish, crusty nasal mucus in the nares. His oropharynx is clear. He had no real reactive anterior adenopathy at all. His right tympanic membrane was somewhat retracted and erythematous when compared to the left and the patient was seen pulling on it while I was interviewing the mother. NECK: Supple. LUNGS: Clear to auscultation. HEART: Normal heart tones heard over the precordium. ABDOMEN: Soft, benign. Positive bowel sounds. Peripheral extremity exam unremarkable both musculoskeletally and dermatologically. ASSESSMENT: Possible early right otitis media. I think the child has a simple URI at this time but a right ear infection could be brewing. At this point, I have offered a course of amoxicillin but I have asked that the mother hold onto this for the next day or two and see if the child's symptoms either worsen or completely resolve and she is to content to do this. PLAN: 1. Continuous Robitussin Pediatric Cough and Cold for decongestion. 2. Children's Motrin as needed for any low grade fevers that might evolve. 3. Amoxicillin 250 mg t.i.d. for 10 day course if worsening right ear pain should be complained of. TT: CT: [id number] C: DOCUMENT: [id number] ATIC DIRECTOR documented in this encounter Plan of Treatment Not on filedocumented as of this encounter Visit Diagnoses Not on filedocumented in this encounter Care Teams Top Frame Maker Relationship Specialty Start Date End Date Md Addison MD PCP - General 06/17/10 [place] [address] documented as of this encounter
--- OUTSIDE RECORDS SUMMARY | 2021-12-25 03:11 | XMS_ITS | Encounter Summary ---
:2000 Author Organization [facility] Address [address], [place] [address] Care Team Providers Name Role Phone Md ARLENE Addison Primary Care Provider Encounter Details Date Type Department Care Team Description 07/16/2010 PN Conversion Only CONVERSION CONVERSION Md Addison MD [place], [place] [id number] Social History Tobacco Use Types Packs/Day Years Used Date Smoking Tobacco: Never Assessed Sex Assigned at Date Recorded Not on file documented as of this encounter Plan of Treatment Not on filedocumented as of this encounter Visit Diagnoses Not on filedocumented in this encounter Care Teams Termite Helper Relationship Specialty Start Date End Date Md Addison MD PCP - General 06/17/10 [place], [place] [address] documented as of this encounter
--- OUTSIDE RECORDS SUMMARY | 2021-12-25 03:11 | XMS_ITS | Clinical Summary ---
:2000 [facility] Address [address] [address] Care Team Providers Name Role Phone Md ARLENE Addison Primary Care Provider Source Comments You are receiving this document as you are listed as the primary care provider,follow-up provider, or the patient has been referred to you for consultation.This is in compliance with the Medicare and Medicaid EHR Incentive Program,which states Providers who transition their patient to another setting of careor provider of care or refers their patient to another provider of care shouldprovide summarycare record for each transition of care or referral. [employer] Allergies No known active allergies Medications Medication Sig Dispensed Refills Start Date End Date Status unknown medication Indications: PN: 0 07/04/2010 Active unknown medication Indications: PN: 0 11/26/2009 Active Active Problems No known active problems Social History Tobacco Use Types Packs/Day Years Used Date Smoking Tobacco: Never Sex Assigned at Date Recorded Not on file Last Filed Vital Signs Vital Sign Reading Time Taken Comments Blood Pressure - - Pulse 77 11/26/2009 8:27 AM CDT Temperature 36.3 ??C (97.4 ??F) 10/15/2020 10:24 AM CDT Respiratory Rate 20 11/26/2009 8:27 AM CDT Oxygen Saturation - - Inhaled Oxygen Concentration - - Weight 63.5 kg (140 lb) 10/15/2020 10:24 AM CDT Height 186.7 cm (6' 1.5) 10/15/2020 10:24 AM CDT Body Mass Index 18.22 10/15/2020 10:24 AM CDT Plan of Treatment Health Maintenance Due Date Last Done Comments Hep C Screening (Preventive 1998 Services) HepB (1) 2000 COVID-19 Vaccine (#1) 04/25/1999 HIV Screening (Preventive 2014 Services) HPV Vaccine (3 - Male 09/16/2015 05/17/2015, 02/20/2015 3-dose series) Adult Preventive Visit 2016 DTaP/Tdap/Td (7 - Tdap) 02/20/2020 02/19/2010, 11/03/2003, 01/24/2000, Additional history exists Influenza (#1) 2021 12/06/2020, 12/01/2019, 01/19/2019, Additional history exists Zoster/Shingles (1 of 2) 2048 Pneumococcal Aged Out 01/24/2000, 10/30/1999 No longer eligible based on patient 's age to complete this topic HepA Completed 11/05/2005, 03/11/2005 MCV4 Aged Out 02/19/2010 No longer eligib le based on patient 's age to complete this topic Hib Aged Out No longer eligib le based on patient 's age to complete this topic IPV (Polio) Aged Out No longer eligib le based on patient 's age to complete this topic Insurance Payer Benefit Plan / Subscriber ID Effective Dates Phone Addre ss Type Group [employer] [id number] 2020-Tasha Commercial t Care Teams Marine Equipment Design Engineer Relationship Specialty Start Date End Date Md Addison MD PCP - General 06/17/10 [place], [place] [id number]
--- OUTSIDE RECORDS SUMMARY | 2021-12-25 03:11 | XMS_ITS | Encounter Summary ---
:2000 Author Organization [facility] of [facility] Address [address], [place] [address] Care Team Providers Name Role Phone Md ARLENE Addison Primary Care Provider Encounter Details Date Type Department Care Team Description 04/07/2005 PN Conversion Only JUVENILE COUNSELOR [address] [facility] [place] [address] Social History Tobacco Use Types Packs/Day Years Used Date Smoking Tobacco: Never Assessed Sex Assigned at Date Recorded Not on file documented as of this encounter Plan of Treatment Not on filedocumented as of this encounter Visit Diagnoses Not on filedocumented in this encounter Care Teams Dedenter Relationship Specialty Start Date End Date Md Addison MD PCP - General 06/17/10 [place] [address] documented as of this encounter
--- NOTE | 2021-12-25 18:03 | ED.NURSE ---
Pt called inquiring about rx voucher. Voucher here, informed pt he could pick it up.
== END 2021-12-25 03:15 | disposition home or self-care (01) ==
LOC: ED 12-25 03:09
PROVIDERS: Emergency Provider Family Medicine
DX: L73.9 Follicular disorder, unspecified (principal)
CPT/HCPCS: 99282; 99283